=== PATIENT | male | born 1995 | race Caucasian/White ===

== ENCOUNTER 2017-02-13 08:46 | Emergency (ER) | payer SELFPAY ==
[2017-02-13 09:03] VITALS: RESP 16; TEMP 97.9
[2017-02-13] MEDS ORDERED: METOCLOPRAMIDE 10 MG/2 ML VIAL IVP ONE (09:13)
[2017-02-13] MEDS ORDERED: DEXAMETHASONE 10 MG/ML VIAL IVP ONE (09:13)
[2017-02-13] MEDS ORDERED: NS 1,000 ML IV ONE ×2 (09:13→10:18)
--- NOTE | 2017-02-13 09:21 | EDPHY ---
H & P Stated Complaint: Migraine x 2-3 days;+nausea/photophobia HPI/ROS: CHIEF COMPLAINT: Migraine HISTORY OF PRESENT ILLNESS: Patient complains of 2 days of migraine headache. This is in the frontal and temporal region of the head. This is consistent with previous migraines. Gradual onset is is an constant duration. Rated as severe. Photophobia and phonophobia. Nausea but no vomiting. No neck pain or stiffness. No fever or chills. No sudden onset. No thunderclap type headache. This is not the worst headache of his life. He reports that is consistent with previous migraine headaches but lasting longer. He does not have them routinely anymore, he used to have them more frequently back in high school. He has not seen a primary care physician for this. The he has not seen a neurologist in many years. No other associated complaints or modifying factors. REVIEW OF SYSTEMS: Ten systems reviewed and are negative unless otherwise noted in the HPI PERTINENT MEDICAL HISTORY: Migraine headaches SOCIAL HISTORY: Nonsmoker. Works at [employer] EXAMINATION General Appearance: Alert, no distress Head: normocephalic, atraumatic Eyes: Eyes cover with a washcloth, Pupils equal and round, no conjunctival pallor or injection. No nystagmus ENT, Mouth: Mucous membranes moist. Uvula midline. Neck: Normal inspection, supple, non-tender. Painless range of motion all planes. No rigidity or meningismus. Respiratory: Lungs are clear to auscultation. No wheezing, rhonchi or crackles Cardiovascular: Regular rate and rhythm. No murmur Gastrointestinal: Abdomen is soft and nontender Back: non-tender, no bony abnormalities Neurological: GCS 15. Cranial nerves 2-12 grossly intact. A&O, nonfocal, normal gait. No pronator drift. No dysmetria. Strength is symmetric in all 4 limbs. Skin: Warm and dry, no rash Extremities: Nontender, no pedal edema Psychiatric: Mood and affect normal DIFFERENTIAL DIAGNOSES: Including but not limited to migraine, headache, cluster headache dehydration, meningitis, subarachnoid hemorrhage MDM: 9:18 a.m. Patient complains of migraine for the past 2 days. The headache is consistent with his previous migraines. It is not the worse headache of his life that was no sudden onset of symptoms. He has no neuro deficits on examination. I have ordered IV fluid, Decadron, Reglan and Benadryl. Plan for Toradol once we verified the patient's creatinine. He is in no acute distress. 10:00 a.m. I have re-evaluated the patient. He states that his pain is down from a 10 to a 5. I will provide 1 additional L of IV fluid resuscitation and recheck. 10:45 a.m. Patient recheck. I have re-evaluated the patient. He is feeling significantly better. He is comfortable being discharged home. He remains neuro intact in no acute distress. Provided prescription for Fioricet with codeine. Follow up with primary care physician. Additionally I have provided Neurology follow-up. We discussed return to emergency department precautions. He is comfortable with this plan and discharged home in stable condition. SUPERVISION: Patient was evaluated in conjunction with the supervising physician. Please see their note for details. Source: Patient, Family Exam Limitations: No limitations - Personal History Current Tetanus Diphtheria and Acellular Pertussis (TDAP): Yes - Medical/Surgical History Other PMH: migraines - Social History Smoking Status: Never smoked Constitutional: Initial Vital Signs Temperature (C) 97.9 F 02/13/17 08:55 Heart Rate 68 02/13/17 08:55 Respiratory Rate 16 02/13/17 08:55 Blood Pressure 137/72 H 02/13/17 08:55 O2 Sat (%) 98 02/13/17 08:55 O2 Delivery Mode Room Air Allergies/Adverse Reactions: No Known Allergies Allergy (Verified 02/13/17 09:00) Home Medications: Medication Instructions Recorded NO HOME MEDS 12/25/10 Codeine/Butalbit/Acetamin/Caff 1 each PO Q6 PRN #12 capsule 02/13/17 [Fioricet-Cod 81-80-123-40 Cap] Medical Decision Making - Data Points Laboratory Results: 02/13/17 09:20 POC Hgb 15.6 gm/dL gm/dL (13.7-17.5) POC Hct 46 % % (40-51) POC Sodium 143 mEq/L mEq/L (134-144) POC Potassium 3.9 mEq/L mEq/L (3.3-5.0) POC Chloride 104 mEq/L mEq/L (97-110) POC BUN 19 mg/dL mg/dL (7-23) POC Creatinine 0.9 mg/dL mg/dL (0.7-1.3) POC Glucose 94 mg/dL mg/dL (70-100) Medications Given: Discontinued Medications Dexamethasone (Decadron Injection) 10 mg IVP EDNOW ONE Stop: 02/13/17 09:14 Last Admin: 02/13/17 09:34 Dose: 10 mg Diphenhydramine HCl (Benadryl Injection) 50 mg IVP EDNOW ONE Stop: 02/13/17 09:14 Last Admin: 02/13/17 09:35 Dose: 50 mg Sodium Chloride (Ns) 1,000 mls @ 0 mls/hr IV ONCE ONE; Wide Open PRN Reason: Protocol Stop: 02/13/17 09:14 Last Admin: 02/13/17 09:35 Dose: 1,000 mls Sodium Chloride (Ns) 1,000 mls @ 0 mls/hr IV ONCE ONE; Wide Open PRN Reason: Protocol Stop: 02/13/17 10:19 Last Admin: 02/13/17 10:20 Dose: 1,000 mls Ketorolac Tromethamine (Toradol) 30 mg IVP EDNOW ONE Stop: 02/13/17 09:45 Last Admin: 02/13/17 09:53 Dose: 30 mg Lorazepam (Ativan Injection) 1 mg IVP EDNOW ONE Stop: 02/13/17 10:22 Last Admin: 02/13/17 10:33 Dose: 1 mg Metoclopramide HCl (Reglan Injection) 10 mg IVP EDNOW ONE Stop: 02/13/17 09:14 Last Admin: 02/13/17 09:35 Dose: 10 mg Point of Care Test Results: 02/13/17 09:20 POC Sodium 143 POC Potassium 3.9 POC Chloride 104 POC BUN 19 POC Creatinine 0.9 POC Glucose 94 Departure - Departure Disposition: Home, Routine, Self-Care Clinical Impression: Migraine Qualifiers: Migraine type: chronic without aura Status migrainosus presence: without status migrainosus Intractability: not intractable Qualified Code(s): G43.709 - Chronic migraine without aura, not intractable, without status migrainosus Condition: Good Instructions: Migraine Headache (ED) Additional Instructions: 1. Prescription medications as needed as prescribed 2. Benadryl 25-50 mg every 6 hours as needed 3. Follow up with primary care physician and Neurology for definitive care 4. Return here for worsening headache, sudden change in headache, fevers, chills , neck pain or stiffness Referrals: Aquiles Booker MD [Medical Doctor] - As per Instructions Tristian Bhakta DO [Doctor of Osteopathy] - As per Instructions Prescriptions: Codeine/Butalbit/Acetamin/Caff [Fioricet-Cod 63-87-374-40 Cap] 1 each PO Q6 PRN #12 capsule PRN Reason: Headache
[2017-02-13] MEDS ORDERED: KETOROLAC 30 MG/1 ML SDV IVP ONE (09:44)
[2017-02-13] MEDS ORDERED: LORazepam 2 MG/ML INJ IVP ONE (10:21)
[2017-02-13 11:10] VITALS: BP 106/40; PULSE 69; O2SAT 98
== END 2017-02-13 11:13 | disposition home or self-care (01) ==
DX: G43.709 Chronic migraine without aura, not intractable, without status migrainosus (principal)
CPT/HCPCS: 82947-QW; 96374; J1200; J1885; J2060; J2765